=== PATIENT | female | born 1995 | race Caucasian/White ===

== ENCOUNTER 2018-11-29 18:40 | Emergency (ER) | payer BC, SELFPAY ==
--- NOTE | 2018-11-29 18:45 | NUR.NOTE ---
Nursing Note: pt states that she slipped off a water slide at [facility] approximately 3 feet landing on her tailbone 10/29 pain
[2018-11-29 18:46] VITALS: BP 137/90; PULSE 102; RESP 16; TEMP 37.5; O2SAT 100
--- NOTE | 2018-11-29 18:53 | ED.GENADUL_ITS ---
Discharge Plan Disposition Patient Disposition: HOME Condition: Stable Discharge Details Chief Complaint: Orthopedic Clinical Impression: Coccyx contusion ED Provider: Owen Guaman Home Meds and New Rx's Prescriptions: No Action No Known Home Meds RF: 0 Discharge Instructions Instructions: Coccyx Injury (ED) Additional Instructions: Use an inflatable donut to ease pressure on her coccyx while sitting. You may prefer lying on your abdomen. May use ibuprofen 600 to 800 mg as needed for pain every 8 hours. Observe a diet rich in fruits and vegetables so that you may avoid constipation. Stand Alone Forms: Work Release Medical Decision Making Is 23-year-old female presents after stable to fall local [facility]. Now with coccygeal pain. Denies bag, referred for Xray. Radiograph does reveal half she had with posterior displacement of the coccyx in relation to S5. As she does have pain that brings her to tears, offered hydrocodone to help with pain this evening as it is been severe. She understands homecare as well as follow-up/return precautions. She is stable and appropriate for discharge at this time. HPI General Mode of arrival: ambulatory . Date/Time Provider Initiated Documentation: 11/29/18 18:41 . Limitations to Documentation: no limitations . Information obtained by: patient . History of Present Illness 23 year old F presents to the emergency department with the chief complaint of Tailbone pain after slip and fall at [facility], described as moderate, Quality is described as dull and constant, and is localized to the buttocks. Patient started experiencing this minute(s) and it has been constant. No exacerbating factors reported . Patient notes no other symptoms.. Patient did receive the following treatments prior to arrival, NSAID Related Data Home Medications Medication Instructions Recorded Confirmed Unknown [No Known Home Meds] 11/29/18 11/29/18 Allergies Allergy/AdvReac Type Severity Reaction Status Date / Time No Known Allergies Allergy Unverified 11/29/18 18:47 General Stated Complaint: Orthopedic PURNIMA: 4 Review of Systems Review of Systems 6 systems reviewed and otherwise negative. No other injury. Denies loss of consciousness. No back pain. [facility] Social History Smoking/Tobacco Use Status: Never Alcohol Intake: current Alcohol Intake frequency: a few times a month Drug use: Never Substance use type: does not use Do you feel safe at home: Yes Do you feel safe in your relationship?: Yes Exam Narrative Exam Narrative: GEN: awake, alert, oriented 3. Pleasant, well groomed, interactive. HEAD: Normocephalic, atraumatic ENT: Mucous membranes moist, oropharynx unremarkable, External ear exam unremarkable EYES: PERRL, EOMI NECK: Full ROM, no JASMEET, no menigismus CHEST/RESP: Nontender, clear to auscultation bilateral, no wheeze/rhonchi/rales CARDIOVASCULAR: RRR, no murmur, rub candelario. 2+ Rad pulse bilateral ABDOMEN: No tenderness or mass. Back: Low L-spine and coccyx tenderness to palpation. EXT: Full ROM, no edema, no rash Neuro: Grossly normal neurologic exam, conversant, interactive. Psych: Speech fluent, thoughts congruent, affect normal Course Vital Signs Temperature 37.5 C 11/29/18 18:46 Pulse 102 H 11/29/18 18:46 Respiratory Rate 16 11/29/18 18:46 Blood Pressure 137/90 11/29/18 18:46 Pulse Oximetry 100 11/29/18 18:46 Temperature 37.5 C 11/29/18 18:46 Temperature Source Skin 11/29/18 18:46 Pulse 102 H 11/29/18 18:46 Respiratory Rate 16 11/29/18 18:46 Respiratory Effort 11/29/18 18:48 Blood Pressure 137/90 11/29/18 18:46 Blood Pressure Position Standing 11/29/18 18:46 Pulse Oximetry 100 11/29/18 18:46 Oxygen Delivery Method Room Air 11/29/18 18:46 Oxygen Flow Rate 0 11/29/18 18:46
--- NOTE | 2018-11-29 19:25 | DI.RAD_ITS ---
SYMPTOM/DIAGNOSIS: PAIN AFTER FALL SACRUM AND COCCYX: Three views were obtained. There is slightly posteriorly position coccyx in relation to the sacrum. This may represent normal anatomic variant, dislocation not excluded. No fracture is seen. MR correlation could be obtained if clinically indicated.
--- NOTE | 2018-11-29 19:59 | DI.VRAD_ITS ---
EXAM: XR Sacrum and Coccyx, 2 or More Views EXAM DATE/TIME: 11/29/2018 7:25 PM CLINICAL HISTORY: 23 years old, female; Pain in coccyx area; Patient HX: Pain after fall TECHNIQUE: Imaging protocol: XR of the sacrum and coccyx, 2 or more views. COMPARISON: No relevant prior studies available. FINDINGS: Bones/joints: There is half shaft width posterior displacement of C1 in relation to S5. This could be anatomic or related to acute injury. No other acute skeletal abnormality is appreciated. Soft tissues: Mild soft tissue swelling at the level of the coccyx. IMPRESSION: Questionable injury versus normal anatomy for this patient at S5-C1, as detailed above. Dictated and Authenticated by: Sage Gonzales MD. Ordering:HIREN Weaver MD
== END 2018-11-29 20:09 | disposition home or self-care (01) ==
PROVIDERS: Emergency Provider Emergency Medicine
DX: S30.0XXA Contusion of lower back and pelvis, initial encounter (principal); W17.89XA Other fall from one level to another, initial encounter; Y93.11 Activity, swimming; Y92.34 Swimming pool (public) as the place of occurrence of the external cause
CPT/HCPCS: 99283; 72220

== ENCOUNTER 2021-01-14 12:00 | Emergency (ER) | payer BC, SELFPAY ==
[2021-01-14 12:08] VITALS: BP 137/82; PULSE 78; RESP 18; TEMP 37.2; O2SAT 100
--- NOTE | 2021-01-14 12:22 | ED.GENADUL_ITS ---
Discharge Plan Disposition Patient Disposition: HOME Condition: Stable Discharge Details Clinical Impression: Abdominal pain, Hydronephrosis Primary Care Provider: Reagan Dc ED Provider: Yovani Brambila Home Meds and New Rx's Prescriptions: Continued acetaminophen [Acetaminophen Extra Strength] 500 mg Tablet 1,000 mg PO PRN PRNRF: 0 ibuprofen 400 mg Tablet 400 mg PO PRN PRNRF: 0 ondansetron 4 mg Tablet,Disintegrating 4 mg PO PRN PRNRF: 0 Discharge Instructions Instructions: Abdominal Pain (ED), Hydronephrosis (ED) Additional Instructions: Work-up in the ER today does not reveal any obvious emergent process. Your symptoms very well could be secondary to a ruptured ovarian cyst however I cannot prove this. The ultrasound also revealed mild hydronephrosis however this was not visualized on your CT, this very well may be an incidental finding. If you continue to have symptoms then outpatient reevaluation through your primary care provider and referral to urology may be indicated. Please watch for new or worsening symptoms and return to the ER for any concerns. [id number] Tylenol and/or Motrin as directed for discomfort. Discharge Data Discharge Date/Time-TO BE ENTERED AT DEPARTURE: 01/14/21 17:09 Medical Decision Making <ANANT Russo - Last Filed: 01/15/21 10:56> Patient is a pleasant 25 year old female, accompanied by her mother, with c/c of RLQ pain that woke her from sleep at 0100. She states that it feels similar to when she had ruptured ovarian cyst 3 years ago. She has used Tylenol and Ibuprofen for pain. Declines analgesics now. LMP 2 weeks ago. No fevers/chills. No previous abdominal surgeries. Sexually active, denies being . No v aginal discharge. Prior to arrival, patient was seen at urgent care who recommended her to come here for imaging. On exam, patient appears nontoxic. Lungs are clear, normal cardiac exam. No CVA tenderness. Patient is right lower quadrant pain but this is lateral to McBurney's point above the iliac crest. No pain in the pelvis. No rebound tenderness. No pain over McBurney point. No pain with palpation elsewhere about the stomach. Location of the pain does have a concern for appendicitis despite it not being directly over McBurney's point. This is slightly high for ovarian pathology. However, I also consider this as it does feel similar to when she had this in the past. Patient declines analgesics. Will obtain CT to evaluate for possible appendicitis. Will obtain baseline labs. PT negative. Labs without significant abnormality, this includes CBC, CMP, lipase. Urine shows trace ketones. She is receiving hydration here. CT reviewed by radiologist: FINDINGS: Liver: Subcentimeter low attenuation area in the liver is too small for characterization. Gallbladder and bile ducts: Normal. No calcified stones. No ductal dilation. Pancreas: Normal. No ductal dilation. Spleen: Normal. No splenomegaly. Adrenal glands: Normal. No mass. Kidneys and ureters: There is no evidence of renal or ureteral calcifications.. Stomach and bowel: Unremarkable. No obstruction. No mucosal thickening. Appendix: Normal appendix. Intraperitoneal space: Unremarkable. No free air. No significant fluid collection. Vasculature: Unremarkable. No abdominal aortic aneurysm. Lymph nodes: Unremarkable. No enlarged lymph nodes. Urinary bladder: Unremarkable as visualized. Reproductive: 2.4 cm simple cyst left ovary.. Bones/joints: Unremarkable. No acute fracture. Soft tissues: Unremarkable. IMPRESSION: 1. Normal appendix. 2. 2.4 cm simple cyst left ovary.. Recommend duplex ultrasound if torsion is suspected 3. There is no evidence of renal or ureteral calcifications.. Discussed findings with the patient. Will obtain ultrasound to evaluate for potential torsion. At the end of my shift, care transition to Akil Brambila PA-C with ultrasound pending. Patient is stable and has remained relatively pain-free aside from a small ache. <ANANT Casey - Last Filed: 01/14/21 16:35> I assumed care of this 25-year-old female from my colleague ANANT Goodrich, please see her initial HPI and examination. At time of signout laboratory values and CT imaging already performed. Awaiting ultrasound to rule out torsion. I personally evaluated the patient. She appears well, nontoxic, no acute distress. Patient reports she is feeling much improved in general, especially after the ibuprofen. She reports that the fireworks have resolved completely and now only has a mild dull ache. Reports this feels very similar to a prev ious ovarian cyst rupture. Discussed ultrasound results with patient and family. Cystic structure in the left ovary, right kidney with mild hydronephrosis, minimal free fluid in the cervical canal, free fluid inferior to the uterus. Patient denies any fever, vomiting, dysuria, hematuria vaginal bleeding or discharge. Ultrasound does not reveal any obvious emergent process such as obstruction and/or torsion. Laboratory values were also unremarkable. We discussed that the free fluid very well could be secondary to ruptured ovarian cyst however I can certainly not prove this. I recommend that she takes [id number] anti-inflammatory medication and acetaminophen as directed for discomfort. I recommend that she watches for new or worsening symptoms and return to the ER for any concerns. We did discuss her mild hydronephrosis and potential need for outpatient urology follow-up if her symptoms are not to improve. Patient is comfortable this plan, has no additional questions or concerns, and is comfortable discharge. Upon discharge she appears well, nontoxic and able to ambulate without any difficulty. Standard discharge and return precautions provided This documentation was generated using Betterflyation system, please disregard any oddities of phrase or misspellings. Imaging Data Radiologic Study: Attestation: I personally reviewed and interpreted this imaging study as follows: Imaging: Ultrasound Radiologist's impression: PROCEDURE INFORMATION: Exam: US Pelvis Complete, Transabdominal and US Pelvis, Transvaginal Exam date and time: 01/14/2021 2:45 PM Age: 25 years old Clinical indication: Other: Right sided back / pelvic pain; Patient HX: HX bilat ovarian cyst rupture TECHNIQUE: Imaging protocol: Real-time transabdominal and transvaginal pelvic ultrasound (complete) with image documentation. Transvaginal imaging was used for better evaluation of the endometrium, adnexa, and/or cervix. COMPARISON: CT ABDOMEN PELVIS W 01/14/2021 1:20 PM FINDINGS: Uterus/cervix: Minimal fluid in the cervical canal 1.79 x 0.3 x 0.9 cm. Total volume 0.2 cc. Uterus measures 6.4x 2.6 by 3.9 cm. Endometrium 2.7 mm Right adnexa: Right ovary 2 x 1.8 x 1.3 cm Left adnexa: Left ovary 3.5 x 1.8 x 2.7 cm. Cystic structure in the left ovary 2.3 x 1.7 by 2.6 cm. Intraperitoneal space: Free fluid inferior to the uterus. Urinary bladder: Normal. Right kidney: Right kidney 10.9 cm. Minimal hydronephrosis.. Left kidney: Left kidney 10.8 cm. No hydronephrosis IMPRESSION: 1. Cystic structure in the left ovary 2.3 x 1.7 by 2.6 cm. . 2. Right kidney 10.9 cm. Minimal hydronephrosis.. 3. Minimal fluid in the cervical canal 1.79 x 0.3 x 0.9 cm. Total volume 0.2 cc. 4. Free fluid inferior to the uterus. HPI <ANANT Russo - Last Filed: 01/15/21 10:56> General Mode of arrival: ambulatory . Date/Time Provider Initiated Documentation: 01/14/21 12:22 . Limitations to Documentation: no limitations . Information obtained by: patient, family (mom), RN/MD (contacted by urgent care provider) and RN notes reviewed . History of Present Illness 25 year old F presents to the emergency department with the chief complaint of RLQ pain, described as moderate, with intensity rated at 4. Quality is described as aching, and is localized to the abdomen. Patient reports no radiation. Patient started experiencing this hour(s) (0100 today) and it has been constant. other things that improve symptom(s), ( position) Other factors that worsen symptoms (extending abdomen straight) . Patient notes nausea/vomiting (nausea, no vomiting); denies chest pain, cough, fever/chills, rash and shortness of breath. Patient did receive the following treatments prior to arrival, NSAID and other (Tylenol) Related Data Home Medications Medication Instructions Recorded Confirmed acetaminophen [Acetaminophen Extra 1,000 mg PO PRN PRN 01/14/21 01/14/21 Strength] ibuprofen 400 mg PO PRN PRN 01/14/21 01/14/21 ondansetron 4 mg PO PRN PRN 01/14/21 01/14/21 Allergies Allergy/AdvReac Type Severity Reaction Status Date / Time No Known Allergies Allergy Unverified 01/14/21 12:14 General Stated Complaint: Abd Prob PURNIMA: 3 Review of Systems <ANANT Russo Last Filed: 01/15/21 10:56> Constitutional Constitutional: Reports as per HPI, Denies chills, Denies fatigue, Denies fever(s) and Denies headache(s) ENT Ears, Nose, Mouth, and Throat: Denies headache(s) Cardiovascular Cardiovascular: Reports as per HPI, Denies chest pain and Denies dyspnea Respiratory Respiratory: Reports as per HPI, Denies cough and Denies dyspnea Gastrointestinal Gastrointestinal: Reports as per HPI Genitourinary Genitourinary: Reports as per HPI Musculoskeletal Musculoskeletal: Reports as per HPI and Denies back pain Integumentary/Breasts Skin/Breast: Reports as per HPI and Denies rash Neurologic Neurologic: Reports as per HPI and Denies headache(s) Endocrine Endocrine: Denies fatigue PFSH <ANANT Russo - Last Filed: 01/15/21 10:56> Social History Smoking/Tobacco Use Status: Never Smoking risk assessment performed?: Yes Alcohol Intake: current Alcohol Intake frequency: a few times a month Drug use: Never Substance use type: does not use Do you feel safe at home: Yes Do you feel safe in your relationship?: Yes Exam <ANANT Russo Last Filed: 01/15/21 10:56> Const General: cooperative, healthy appearing, comfortable, no acute distress and well developed Nutritional Appearance: well nourished and overweight Orientation: alert and awake HENMT Head: normal to inspection Mouth: moist mucous membranes Resp Effort & Inspection: normal respiratory effort, able to speak in complete sentences and no respiratory distress Auscultation: clear to auscultation bilaterally, no rales, no rhonchi and no wheezes Cardio Rate: regular rate Rhythm: regular rhythm Heart Sounds: S1 normal and S2 normal GI Inspection: normal to inspection Palpation: soft, no hepatosplenomegaly, not firm, no guarding, no masses, not rigid and tender in the RLQ; not at McBurney's point, Omalley's sign negative, psoas sign negative and with no rebound tenderness Percussion: normal to percussion Auscultation: normal bowel sounds Abdomen image: 1. area of pain Back/Spine/Pelvis Back: no CVA tenderness Skin General skin exam: no rashes or lesions noted Trauma: no lacerations or abrasions Neuro General: patient alert and patient awake Cognition: normal cognition Speech: speech normal Gait: normal gait Psych Appearance: grossly normal and well kempt Mental Status: mental status grossly normal Speech and Movement: speech and movement normal Course <ANANT Russo Last Filed: 01/15/21 10:56> Vital Signs Vital signs: Vital Signs Temperature 37.2 C 01/14/21 12:08 Pulse 78 01/14/21 12:08 Respiratory Rate 18 01/14/21 12:08 Blood Pressure 137/82 01/14/21 12:08 Pulse Oximetry 100 01/14/21 12:08 Temperature 37.2 C 01/14/21 12:08 Temperature Source Temporal Artery Scan 01/14/21 12:08 Pulse 78 01/14/21 12:08 Respiratory Rate 18 01/14/21 12:08 Respiratory Effort 01/14/21 12:17 Blood Pressure 137/82 01/14/21 12:08 Blood Pressure Position Supine 01/14/21 12:08 Pulse Oximetry 100 01/14/21 12:08 Oxygen Delivery Method Room Air 01/14/21 12:08 Oxygen Flow Rate 0 01/14/21 12:08 Pain Level 4 01/14/21 12:08 Sign Out <ANANT Russo - Last Filed: 01/15/21 10:56> Sign Out Data: Sign Out Comment: Patient here with right lower quadrant pain. CT without re markable finding. Obtain ultrasound to evaluate for possible torsion. At the end of my shift, care transition to Akil Brambila PA-C with ultrasound results pending. Last updated by Justine Goodrich PA at 01/14/21 15:46
[2021-01-14] MEDS: Lactated Ringers 1,000 ML 1000 ML IV (12:48)
[2021-01-14 13:17] LABS: Abs Immature Grans 0.05 10^3/uL (0.0-0.06); Absolute Basophil Count 0.04 10^3/uL (0.0-0.2); Absolute Eosinophil Count 0.02 10^3/uL (0.0-0.7); Absolute Lymphocyte Count 1.51 10^3/uL (1.2-3.4); Absolute Monocyte Count 0.63 10^3/uL (0.1-0.8); Absolute Neutrophil Count 8.45 10^3/uL (1.2-6.7); Basophils % 0.4; Eosinophils % 0.2; HGB 14.4 g/dL (11.2-15.7); Immature Grans % 0.5; Lymphocytes % 14.1; MCHC 33.5 % (32.0-36.0); MCV 92.5 fL (80-95); MPV 8.5 fL (8.0-11.0); Monocytes % 5.9; Neutrophils % 78.9; Nucleated RBC 0 %; Platelet Count 393 10^3/uL (130-400); RBC 4.65 10^6/uL (3.93-5.22); RDW 11.7 % (11.7-14.6); RDW-SD 39.7 fL
[2021-01-14 13:18] LABS: Bilirubin Negative (Negative); Blood Negative (Negative); Clarity Clear (Clear); Glucose Negative (Negative); Ketones Trace mg/dL (Negative); Leukocyte Esterase Negative (Negative); Nitrite Negative (Negative); Specific Gravity 1.015 (1.005-1.025); Urobilinogen 0.2 EU/dL (Up TO 0.2); pH 5.5 (5-8)
--- NOTE | 2021-01-14 13:22 | DI.CT_ITS ---
Exam(s) CT ABDOMEN PELVIS W EXAM: CT ABDOMEN PELVIS W CLINICAL HISTORY: RLQ pain. TECHNIQUE: Imaging Protocol: Axial computed tomography images with coronal and sagittal reformatted images were created and reviewed CONTRAST MATERIAL: Intravenous: Omnipaque 100cc Oral: None COMPARISON: No exams were available for comparison FINDINGS: VISUALIZED LUNG BASES: No nodules nor pleural effusions evident. ABDOMEN: There is no ascites. LIVER: 5 millimeter subtle benign hypodensity in the upper right hepatic lobe is probably a small hem angioma. Another similar finding is seen slightly lower down in the lateral aspect of the right hepa tic lobe. No other focal hepatic findings nor dilatation of intrahepatic ducts. GALLBLADDER/BILIARY: No obvious gallbladder pathology. CBD is not dilated. PANCREAS: No evidence of pancreatic mass nor dilatation of the pancreatic duct. SPLEEN: Spleen is not enlarged. No obvious intrasplenic lesions. Splenic and portal veins are paten t. ADRENALS: There are no significant adrenal masses. KIDNEYS:No cysts evident. No solid renal masses. No calculi nor hydronephrosis.. ABDOMINAL AORTA: Abdominal aorta is not enlarged. LYMPH NODES:There is no retroperitoneal nor paraaortic adenopathy. ABDOMINAL WALL: No evidence of significant anterior abdominal wall nor inguinal hernia. GI: There is no evidence of bowel obstruction, free air, nor abscess. PELVIS: GI: No evidence of appendicitis.No enlarged lymph nodes in the right lower quadrant mesentery.No evid ence of diverticulitis. LYMPH NODES: There is no intrapelvic nor inguinal adenopathy. REPRODUCTIVE: Uterus size normal. Right ovary normal. There is a cyst in the left ovary which measu res 2.5 x 2.4 cm. No free fluid. URINARY BLADDER: No calculi nor obvious masses evident OSSEOUS: No significant osseous lesions. IMPRESSION: 1. No evidence of appendicitis nor diverticulitis nor obvious gallbladder pathology and no dilatation of the biliary tree. 2. No significant renal findings. No hydronephrosis. 3. There is 2.5 x 2.4 cm cyst in left ovary, not associated with surrounding free fluid. If there is clinical suspicion for torsion then follow-up ultrasound with Doppler imaging would be recommended. 4. There is no ascites. RADIATION DOSE DELIVERED: 820.25mGy.cm Total DLP DATA REPOSITORY: All CT scans at this facility are submitted to the National Radiology Data Registry (NRDR) Dose Index Registry (DIR) with the [employer] ([employer]). RADIATION OPTIMIZATION: All CT scans at this facility use at least one of these dose optimization te chniques: automated exposure control; mA and/or kV adjustment per patient size (includes targeted exa ms where dose is matched to clinical indication); or iterative reconstruction.
[2021-01-14 13:24] LABS: ALT 19 U/L (14-59); AST 17 U/L (15-37); Albumin 3.8 g/dL (3.4-5.0); Alkaline Phosphatase 83 U/L (46-116); Anion Gap 11.4 mmol/L (3-11); BUN 10 mg/dL (7-18); Bilirubin, Total 0.6 mg/dL (0.2-1.0); CO2 24.6 mmol/L (21.0-32.0); CREATININE 0.9 mg/dL (0.55-1.02); Chloride 104 mmol/L (98-107); Glucose 99 mg/dL (74-106); Lipase 61 U/L (73-393); Potassium 3.9 mmol/L (3.5-5.1); Sodium 140 mmol/L (136-145)
[2021-01-14] MEDS: Omnipaque 350 MG/ML 100 ML BTL IJ (13:31)
[2021-01-14] MEDS: Normal Saline Flush 10 ML SYR IVP (13:31)
--- NOTE | 2021-01-14 13:42 | DI.US_ITS ---
Exam(s) US PELVIS TRANSVAGINAL EXAM: US PELVIS TRANSVAGINAL CLINICAL HISTORY: RLQ pain TECHNIQUE: Ultrasound of the pelvis was performed both transabdominal and transvaginal. COMPARISON: No exams were available for comparison FINDINGS: UTERUS: Measures 6.4 cm length x 2.6 cm AP x 3.9 cm wide. There are no uterine fibroids. Endometrial thickness measures 2.7 mm. Mild amount of fluid in the lower endometrial canal CERVIX: There is also fluid in the endocervix RIGHT OVARY: Measures 2 x 1.8 x 1.3 cm No significant cysts nor masses evident in the right ovary. LEFT OVARY: Measures 3.5 x 1.8 x 2.7 cm There is a cyst in left ovary measuring 2.7 x 1.8 cm. It contains a thin septum therein. There is no surrounding free fluid. CUL-DE-SAC: Mild free fluid IMPRESSION: 1. There is some fluid in the lower endometrial canal as well as within the endocervical canal. 2. There is a 2.7 x 1.8 cm septated cyst in the left ovary. No focal findings in the opposite-right ovary. 3. Mild free fluid. Correlation with test recommended DATA REPOSITORY:
--- NOTE | 2021-01-14 14:02 | DI.VRAD_ITS ---
PROCEDURE INFORMATION: Exam: CT Abdomen And Pelvis With Contrast Exam date and time: 01/14/2021 12:43 PM Age: 25 years old Clinical indication: Abdominal pain; Localized; Right lower quadrant (rlq) TECHNIQUE: Imaging protocol: Computed tomography of the abdomen and pelvis with contrast. Radiation optimization: All CT scans at this facility use at least one of these dose optimization techniques: automated exposure control; mA and/or kV adjustment per patient size (includes targeted exams where dose is matched to clinical indication); or iterative reconstruction. Contrast material: [id number]; Contrast volume: 100 ml; Contrast route: INTRAVENOUS (IV); COMPARISON: CR XR sacrum coccyx 11/29/2018 7:15 PM FINDINGS: Liver: Subcentimeter low attenuation area in the liver is too small for characterization. Gallbladder and bile ducts: Normal. No calcified stones. No ductal dilation. Pancreas: Normal. No ductal dilation. Spleen: Normal. No splenomegaly. Adrenal glands: Normal. No mass. Kidneys and ureters: There is no evidence of renal or ureteral calcifications.. Stomach and bowel: Unremarkable. No obstruction. No mucosal thickening. Appendix: Normal appendix. Intraperitoneal space: Unremarkable. No free air. No significant fluid collection. Vasculature: Unremarkable. No abdominal aortic aneurysm. Lymph nodes: Unremarkable. No enlarged lymph nodes. Urinary bladder: Unremarkable as visualized. Reproductive: 2.4 cm simple cyst left ovary.. Bones/joints: Unremarkable. No acute fracture. Soft tissues: Unremarkable. IMPRESSION: 1. Normal appendix. 2. 2.4 cm simple cyst left ovary.. Recommend duplex ultrasound if torsion is suspected 3. There is no evidence of renal or ureteral calcifications.. Dictated and Authenticated by: Tj Jeff MD. Ordering:BEATRIZ Fletcher MD
[2021-01-14 14:44] VITALS: BP 114/64; PULSE 86; RESP 14; O2SAT 100
--- NOTE | 2021-01-14 16:03 | DI.VRAD_ITS ---
PROCEDURE INFORMATION: Exam: US Pelvis Complete, Transabdominal and US Pelvis, Transvaginal Exam date and time: 01/14/2021 2:45 PM Age: 25 years old Clinical indication: Other: Right sided back / pelvic pain; Patient HX: HX bilat ovarian cyst rupture TECHNIQUE: Imaging protocol: Real-time transabdominal and transvaginal pelvic ultrasound (complete) with image documentation. Transvaginal imaging was used for better evaluation of the endometrium, adnexa, and/or cervix. COMPARISON: CT ABDOMEN PELVIS W 01/14/2021 1:20 PM FINDINGS: Uterus/cervix: Minimal fluid in the cervical canal 1.79 x 0.3 x 0.9 cm. Total volume 0.2 cc. Uterus measures 6.4x 2.6 by 3.9 cm. Endometrium 2.7 mm Right adnexa: Right ovary 2 x 1.8 x 1.3 cm Left adnexa: Left ovary 3.5 x 1.8 x 2.7 cm. Cystic structure in the left ovary 2.3 x 1.7 by 2.6 cm. Intraperitoneal space: Free fluid inferior to the uterus. Urinary bladder: Normal. Right kidney: Right kidney 10.9 cm. Minimal hydronephrosis.. Left kidney: Left kidney 10.8 cm. No hydronephrosis IMPRESSION: 1. Cystic structure in the left ovary 2.3 x 1.7 by 2.6 cm. . 2. Right kidney 10.9 cm. Minimal hydronephrosis.. 3. Minimal fluid in the cervical canal 1.79 x 0.3 x 0.9 cm. Total volume 0.2 cc. 4. Free fluid inferior to the uterus. Dictated and Authenticated by: Tj Jeff MD. Ordering:BEATRIZ Fletcher MD
[2021-01-14] MEDS: Ibuprofen 600 MG TAB PO (16:16)
[2021-01-14 16:38] VITALS: BP 125/80; PULSE 83; RESP 18; TEMP 37; O2SAT 99
== END 2021-01-14 17:09 | disposition home or self-care (01) ==
PROVIDERS: Physician Assistant; Emergency Provider Physician Assistant; PCP Nurse Practitioner Family
DX: R10.31 Right lower quadrant pain (principal); N13.30 Unspecified hydronephrosis
CPT/HCPCS: 80053; 81025; 83690; 96360; 99284; 74177; 76830; 76856; 81003; 85025; J3490

== ENCOUNTER 2021-01-20 16:34 | Outpatient (REF) | payer BC, SELFPAY ==
--- NOTE | 2021-01-20 15:30 | PAPFT_PTH ---
PATIENT: Ninfa Araiza LOC: [facility] U#:[id number] AGE/SX: 25/F ROOM: RE01/20/[address]: Iris Romero MD : 1995 BED: DIS: 01/20/2021 SPEC #: [id number] RECD: 01/20/21 16:53 STATUS: DAYNA REQ #: [id number] DELORES: 01/20/21 15:[address]: Iris Romero DEPT: [facility] Cytology RECD BY: Jannette Medley ENTERED: 01/20/21 16:54 SP TYPE: PAPFT OTHR DR: Reagan Dc Tissues: 1 - CX/ENDOCX FOR PAP SMEARS Procedures: PAP THIN PREP/UVM Screening Comments: [id number]
== END 2021-01-20 16:35 | disposition home or self-care (01) ==
LOC: LBN 16:34
PROVIDERS: PCP Nurse Practitioner Family; Visit Provider Obstetrics & Gynecology
DX: Z12.4 Encounter for screening for malignant neoplasm of cervix (principal)
CPT/HCPCS: 88142

== ENCOUNTER 2021-06-06 18:02 | Outpatient (REF) | payer BC, SELFPAY ==
[2021-06-08 14:25] LABS: COVID-19 RT-PCR UVMMC Result Negative (Negative)
== END 2021-06-06 18:03 | disposition home or self-care (01) ==
LOC: LBN 18:02
PROVIDERS: PCP Nurse Practitioner Family; Visit Provider Nurse Practitioner Family
DX: J02.9 Acute pharyngitis, unspecified (principal); Z20.822 Contact with and (suspected) exposure to COVID-19
CPT/HCPCS: 87077; U0003; 87070

== ENCOUNTER 2023-08-25 08:57 | Emergency (ER) | payer BC, SELFPAY ==
[2023-08-25 09:04] VITALS: BP 115/68; PULSE 108; RESP 17; TEMP 37.2; O2SAT 98
--- NOTE | 2023-08-25 09:30 | DI.RAD_ITS ---
Exam(s) XR KNEE LT 3V AP,LAT,CALVIN EXAM: XR KNEE LT 3V AP,LAT,CALVIN CLINICAL HISTORY: left injury, twisting, pain over patella. TECHNIQUE: 2D digital imaging was performed. Three views. COMPARISON: No exams were available for comparison FINDINGS: BONES: No acute fracture is present. No bony destructive lesion is seen. JOINTS: The knee is normally aligned. A moderate-sized joint effusion is seen. The joint spaces are maintained. SOFT TISSUE: Normal. IMPRESSION: Joint effusion. DATA REPOSITORY: RADIATION DOSE DELIVERED:
[2023-08-25] MEDS: Acetaminophen 500 MG TAB 1000 MG PO (10:07)
--- NOTE | 2023-08-25 10:17 | ED.GENADUL_ITS ---
Discharge Plan Disposition Patient Disposition: Home Condition: Stable Discharge Details Clinical Impression: Internal derangement of knee Primary Care Provider: Unknown,Unknown ED Provider: Jannette Giles Home Meds and New Rx's Prescriptions: Continued levonorgestrel-ethinyl estrad 0.15-0.03 mg tablet 1 tab PO DAILY Qty: 84 4RF albuterol sulfate 90 mcg/actuation HFA aerosol inhaler 2 puff inhalation Q6H PRN (Reason: shortness of breath or wheezing) Qty: 6.7 0RF (DME) Aerochamber MV Spacer See Rx Instructions .Route Qty: 1 0RF Rx Instructions: As directed acetaminophen [Acetaminophen Extra Strength] 500 mg Tablet 1,000 mg PO PRN PRN ibuprofen 400 mg Tablet 400 mg PO PRN PRN Discharge Instructions Additional Instructions: Take ibuprofen 600 mg every 8 hours with food Take Tylenol 650 every 4 hours, do not exceed 4 g of Tylenol daily Ice 20 minutes/h, do not apply ice directly to your leg, use your crutches with ambulation Follow-up with orthopedics on Saturday they will likely call you to schedule an appointment You may apply diclofenac gel or Motrin gel which is [id number] for pain Return earlier should you develop any new or worsening complaints Discharge Data Discharge Date/Time-TO BE ENTERED AT DEPARTURE: 08/25/23 10:42 HPI General Date/Time Provider Initiated Documentation: 08/25/23 09:05 . HPI Narrative: This 28-year-old female presents with report of left knee pain. She states that she was dancing and twisted her knee and then has not been able to ambulate since that time secondary discomfort. She states it is mostly pain but feels unstable. She states she is having trouble placing any pressure on the knee secondary to pain. She denies any chance of or any additional injuries. She did sleep on her left arm and has some tingling to her fourth and fifth digits which has been persistent for the past several hours. It is predominantly in her hands and denies any additional symptoms at this time. Otherwise reportedly healthy does not take medications per patient. Related Data Home Medications Medication Instructions Recorded Confirmed acetaminophen 500 mg tablet 1,000 mg PO PRN PRN 01/14/21 08/25/23 (Acetaminophen Extra Strength) ibuprofen 400 mg tablet 400 mg PO PRN PRN 01/14/21 08/25/23 levonorgestrel 0.15 mg-ethinyl 1 tab PO DAILY #84 tabs 01/20/21 08/25/23 estradiol 0.03 mg tablet inhalational spacing device #1 ea 04/19/22 08/25/23 (Aerochamber MV spacer) albuterol sulfate 90 mcg/actuation 2 puff inhalation Q6H PRN 06/12/23 08/25/23 aerosol inhaler shortness of breath or wheezing #6.7 grams Previous Rx's Medication Instructions Recorded levonorgestrel 0.15 mg-ethinyl 1 tab PO DAILY #84 tabs 01/20/21 estradiol 0.03 mg tablet inhalational spacing device #1 ea 04/19/22 (Aerochamber MV spacer) albuterol sulfate 90 mcg/actuation 2 puff inhalation Q6H PRN 06/12/23 aerosol inhaler shortness of breath or wheezing #6.7 grams Allergies Allergy/AdvReac Type Severity Reaction Status Date / Time amoxicillin [From Augmentin] AdvReac Intermediate Vomit Verified 08/25/23 09:10 clavulanic acid AdvReac Intermediate Vomit Verified 08/25/23 09:10 [From Augmentin] General Stated Complaint: Orthopedic PURNIMA: 3 Exam Narrative Exam Narrative: 19-year-old female alert and oriented left knee pain, flexion and extension intact, no obvious swelling or visible sign of trauma no Kesling or tenderness, neurovascularly intact Some mild paresthesias to fourth and fifth digits on hands, hand grasp intact bilaterally and symmetrical, no upper arm involvement and no other neurological signs or symptoms on assessment Course Vital Signs Vital signs: Vital Signs Temperature 37.2 C 08/25/23 09:04 Pulse 108 H 08/25/23 09:04 Respiratory Rate 17 08/25/23 09:04 Blood Pressure 115/68 08/25/23 09:04 Pulse Oximetry 98 08/25/23 09:04 Temperature 37.2 C 08/25/23 09:04 Pulse 108 H 08/25/23 09:04 Respiratory Rate 17 08/25/23 09:04 Respiratory Effort Normal 08/25/23 09:09 Blood Pressure 115/68 08/25/23 09:04 Blood Pressure Position Sitting 08/25/23 09:04 Pulse Oximetry 98 08/25/23 09:04 Oxygen Delivery Method Room Air 08/25/23 09:04 Oxygen Flow Rate 0 08/25/23 09:04 Pain Level 9 08/25/23 09:16 Medical Decision Making 28-year-old female presenting with injury to left knee, exam reassuring, no obvious evidence of patellar tendon disruption able to flex and extend knee, x- ray per radiology interpretation my review does not show evidence of acute f racture or obvious effusion. Patient will need to have knee immobilizer placed for comfort and crutches. She will be referred to orthopedics for internal derangement of knee will take ibuprofen and Tylenol as needed for pain. In terms of the left fourth and fifth digit paresthesias, I suspect patient likely has an neuralgia secondary to likely sleeping on her ulnar nerve and this likely resolved. She is encouraged to return there is no evidence of central process clinically. Return precautions reviewed and patient expressed understanding Quality:SDOH Health Related Social Needs: No Data to Display PFSH All Active Problems (Updated 08/25/23 @ 10:17 by ANANT Godoy) Internal derangement of knee (Acute) Ovarian cyst (Acute) Routine gynecological examination (Acute) Pelvic pain (Acute) Chronic migraine without aura, not intractable, without status migrainosus (Acute) Abdominal pain (Acute) Hydronephrosis (Acute) Family History Other Autoimmune disease Diabetes Heart disease Hypertension Stroke Social History Smoking/Tobacco Use Status: Never Smoking risk assessment performed?: Yes Alcohol Intake: current Alcohol Intake frequency: a few times a month Drug use: Never Substance use type: does not use Household members: significant other Number of Children: 0 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 @ [employer] Sexually active: Yes Do you think of yourself as: straight/heterosexual Current gender identity: female What type of physical activity do you participate in: bicycling Do you feel safe at home: Yes Do you feel safe in your relationship?: Yes Female Reproductive History Menstrual Age of Menarche: 14 control method: pills History History 0 Para Hx # Term Pregnancies Multiple births Hx # Pregnancies Ectopic pregnancies AB induced Hx Number of Living Children AB spontaneous PAWSS Have you Been Recently Intoxicated or Drunk Within the Last 30 days?: No Have you Ever Experienced Previous Episodes of Alcohol Withdrawal?: No Have you ever Experienced Withdrawal Seizures?: No Have you ever Experienced Delirium Tremens(DT)s?: No Have you ever undergone Alcohol Rehabilitation Treatment (i.e, inpt ot outpatient treatment programs)?: No Have you ever Experienced Blackouts?: No Have you ever Combined Alcohol with other Downers within the last 90 days?: No Have you ever Combined Alcohol with any other Substance of Abuse during the last 90 days?: No Result: 0
[2023-08-25 10:39] VITALS: BP 115/68; PULSE 108; RESP 17; TEMP 37.2; O2SAT 98
--- NOTE | 2023-08-25 11:06 | DI.VRAD_ITS ---
PROCEDURE INFORMATION: Exam: XR Left Knee Exam date and time: 08/25/2023 9:49 AM Age: 28 years old Clinical indication: Other: Left injury, twisting, pain over patella TECHNIQUE: Imaging protocol: Radiologic exam of the left knee. Views: 3 views. COMPARISON: No relevant prior studies available. FINDINGS: Bones/joints: Moderate-sized joint effusion present. No evidence of acute fracture Soft tissues: Normal. IMPRESSION: No evidence of acute fracture. Dictated and Authenticated by: Jolene Roche MD. Ordering:BAYLEE Bhatia MD
== END 2023-08-25 10:42 | disposition home or self-care (01) ==
PROVIDERS: Emergency Provider Physician Assistant
DX: M25.462 Effusion, left knee (principal); M23.8X2 Other internal derangements of left knee
CPT/HCPCS: 73562; 99283

== ENCOUNTER 2023-09-25 14:43 | Outpatient (REF) | payer BC, SELFPAY | END 2023-09-25 14:44 | disposition home or self-care (01) | LOC: LBN 14:43 | PROVIDERS: PCP Physician Assistant; Visit Provider Physician Assistant | DX: J02.9 Acute pharyngitis, unspecified (principal) | CPT/HCPCS: 87070 ==

== ENCOUNTER 2023-11-13 12:05 | Outpatient (REF) | payer BC, SELFPAY | END 2023-11-13 12:06 | disposition home or self-care (01) | LOC: LBN 12:05 | PROVIDERS: PCP Physician Assistant; Visit Provider Obstetrics & Gynecology | DX: N89.8 Other specified noninflammatory disorders of vagina (principal) | CPT/HCPCS: 87086; 87480; 87510; 87660 ==

== ENCOUNTER 2024-03-09 15:46 | Outpatient (REF) | payer BC, SELFPAY ==
--- NOTE | 2024-03-09 15:17 | PAPFT_PTH ---
PATIENT: Ninfa Araiza LOC: [facility] U#:[id number] AGE/SX: 28/F ROOM: RE03/09/[address]: Iris Romero MD : 1995 BED: DIS: 03/09/2024 SPEC #: [id number] RECD: 03/09/24 17:28 STATUS: DAYNA REQ #: [id number] DELOERS: 03/09/24 15:[address]: Iris Romero DEPT: [facility] Cytology RECD BY: Jannette Medley ENTERED: 03/09/24 17:28 SP TYPE: PAPFT OTHR DR: Brady Ojeda Tissues: 1 - CX/ENDOCX FOR PAP SMEARS Procedures: PAP THIN PREP/UVM Screening HPV DNA PROBE Comments: [id number] (HPV 16 & 18/45)
== END 2024-03-09 15:47 | disposition home or self-care (01) ==
LOC: LBN 15:46
PROVIDERS: PCP Physician Assistant; Visit Provider Obstetrics & Gynecology
DX: Z01.419 Encounter for gynecological examination (general) (routine) without abnormal findings (principal)
CPT/HCPCS: 88142; 87624

== ENCOUNTER 2024-11-10 06:14 | Emergency (ER) | payer BC, SELFPAY ==
[2024-11-10 06:17] VITALS: BP 145/96; PULSE 91; RESP 18; TEMP 36.7; O2SAT 99
[2024-11-10 06:22] VITALS: BP 145/96; PULSE 91; RESP 18; TEMP 36.7; O2SAT 99
--- NOTE | 2024-11-10 06:26 | W.ED.GENAD ---
Discharge Plan Discharge Details Chief Complaint: Abd Prob Clinical Impression: Dehydration, Nausea & vomiting, Colicky epigastric pain Primary Care Provider: Brady Ojeda ED Provider: Doug Anderson Home Meds and New Rx's Prescriptions: No Action albuterol sulfate 90 mcg/actuation HFA aerosol inhaler 2 puff inhalation Q6H PRN (Reason: shortness of breath or wheezing) Qty: 6.7 0RF sertraline 50 mg tablet 50 mg PO DAILY (DME) Aerochamber MV Spacer See Rx Instructions .Route Qty: 1 0RF Rx Instructions: As directed levonorgestrel-ethinyl estrad 0.15-0.03 mg tablet 1 tab PO DAILY Qty: 84 4RF acetaminophen [Acetaminophen Extra Strength] 500 mg Tablet 1,000 mg PO PRN PRN ibuprofen 400 mg Tablet 400 mg PO PRN PRN HPI General Date/Time Provider Initiated Documentation: 11/10/24 06:25. HPI Narrative: This is a pleasant 29-year-old female with past medical history of of asthma, who presents today for evaluation of abdominal pain. Patient states that 3 days ago she developed fever and chills with a Tmax of 102. She had no other symptoms of cough or vomit or headache or neck pain. However about 48 hours ago she developed epigastric pain discomfort which she described as a sharp sensation, that comes and goes in severity. Over the last 24 hours she has had multiple episodes of vomiting associated with this but no hematemesis, or hematochezia. She has noted some dark-colored stool. She had been taking just a few pills of ibuprofen and Tylenol for her fever earlier but nothing excessive. She denies any alcohol use. Pain is located in the upper abdomen, radiates to the right and left upper quadrants. She denies any other complaints at this time. No other modifying factors. Related Data Home Medications ?Medication ?Instructions ?Recorded ?Confirmed acetaminophen 500 mg tablet 1,000 mg PO PRN PRN 01/14/21 11/10/24 (Acetaminophen Extra Strength) ibuprofen 400 mg tablet 400 mg PO PRN PRN 01/14/21 11/10/24 inhalational spacing device #1 ea 04/19/22 03/09/24 (Aerochamber MV spacer) albuterol sulfate 90 mcg/actuation 2 puff inhalation Q6H PRN 06/12/23 11/10/24 aerosol inhaler shortness of breath or wheezing #6.7 grams sertraline 50 mg tablet 50 mg PO DAILY 03/09/24 11/10/24 levonorgestrel 0.15 mg-ethinyl 1 tab PO DAILY #84 tabs 03/10/24 11/10/24 estradiol 0.03 mg tablet Previous Rx's ?Medication ?Instructions ?Recorded inhalational spacing device #1 ea 04/19/22 (Aerochamber MV spacer) albuterol sulfate 90 mcg/actuation 2 puff inhalation Q6H PRN 06/12/23 aerosol inhaler shortness of breath or wheezing #6.7 grams levonorgestrel 0.15 mg-ethinyl 1 tab PO DAILY #84 tabs 03/10/24 estradiol 0.03 mg tablet Allergies Allergy/AdvReac Type Severity Reaction Status Date / Time amoxicillin (From Augmentin) AdvReac Intermediate Vomit Verified 11/10/24 06:21 clavulanic acid (From AdvReac Intermediate Vomit Verified 11/10/24 06:21 Augmentin) General Stated Complaint: Abd Prob PURNIMA: 3 Exam Narrative Exam Narrative: 1.Const: Well-nourished, Well-developed, appearing stated age 2.Eyes: PERRL, no conjunctival injection, and symmetrical lids. 3.ENT: Atraumatic external nose and ears. Dry MM. Neck: Symmetric, trachea midline, No thyromegaly. 4.CVS: +S1/S2, Peripheral pulses 2+ and equal in all extremities. Brisk capillary refill in all extremities. 5.RESP: Unlabored respiratory effort. Clear to auscultation bilaterally. No wheezes rales or rhonchi 6.GI: Soft, Nontender/Nondistended, No hepatosplenomegaly. No guarding or rebound. Mild epigastric achiness but no significant pain. 7.MSK: Normocephalic/Atraumatic, Extremities w/o deformity or ttp No cyanosis or clubbing, Normal movement of all extremities 8.Skin: Warm, Dry. No rashes or lesions. 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 Sensation grossly intact, no focal neurologic deficits. 10.Psych: (AAO) x3. Appropriate mood and affect Course Vital Signs Vital signs: Vital Signs Temperature 36.7 C 11/10/24 06:17 Pulse 91 H 11/10/24 06:17 Respiratory Rate 18 11/10/24 06:17 Blood Pressure 145/96 H 11/10/24 06:17 Pulse Oximetry 99 11/10/24 06:17 Temperature 36.7 C 11/10/24 06:22 Temperature Source Oral 11/10/24 06:22 Pulse 91 H 11/10/24 06:22 Respiratory Rate 18 11/10/24 06:22 Blood Pressure 145/96 H 11/10/24 06:22 Blood Pressure Position Sitting 11/10/24 06:22 Pulse Oximetry 99 11/10/24 06:22 Oxygen Delivery Method Room Air 11/10/24 06:22 Oxygen Flow Rate 0 11/10/24 06:22 Pain Level 8 11/10/24 06:22 Medical Decision Making This is a pleasant 29-year-old female with past medical history of of asthma, who presents today for evaluation of abdominal pain. Patient states that 3 days ago she developed fever and chills with a Tmax of 102. She had no other symptoms of cough or vomit or headache or neck pain. However about 48 hours ago she developed epigastric pain discomfort which she described as a sharp sensation, that comes and goes in severity. Over the last 24 hours she has had multiple episodes of vomiting associated with this but no hematemesis, or hematochezia. She has noted some dark-colored stool. She had been taking just a few pills of ibuprofen and Tylenol for her fever earlier but nothing excessive. She denies any alcohol use. Pain is located in the upper abdomen, radiates to the right and left upper quadrants. She denies any other complaints at this time. No other modifying factors. Exam demonstrates well-appearing female, mild epigastric achiness, but no signs of an acute surgical abdomen. No pain at McBurney's point. Negative Omalley sign. Differential includes gastroenteritis, gastric ulcer, pancreatitis, cholecystitis is less likely. Symptoms inconsistent with ACS or PE with no chest discomfort. No evidence to suggest acute mesenteric ischemia. Will give GI cocktail, Carafate, Zofran rehydrate, get labs, monitor closely and reassess. With no evidence of an acute surgical abdomen, I do not see an indication for emergent imaging at this time. 7:27 AM Laboratory workup has returned, after a liter of fluids, Carafate, and GI cocktail patient is having slight worsening of her pain. She has no white count or bandemia. Lactate is normal, lipase normal, transaminases and bilirubin normal. Urinalysis negative for infection, COVID flu and RSV are negative. With the patient's persistent and worsening pain I am concerned for potential other acute intra-abdominal pathology. Will get CT scan. Patient will be signed out to my colleague for follow-up on imaging. I have extensively reviewed the treatment plan and discharge instructions with the patient. I have addressed all patient concerns at this time. The patient was made aware of what symptoms to monitor for that would warrant a return to the emergency department. Discussed the plan with the patient, they demonstrate verbal understanding and agreement with our assessment and plan at this time. The documentation in this chart was dictated using [employer] dictation software. Please excuse any dictation errors. PFSH All Active Problems (Updated 11/10/24 @ 07:28 by Doug Anderson DO) Colicky epigastric pain (Acute) Nausea & vomiting (Acute) Dehydration (Acute) Internal derangement of left knee (Acute ~08/24/23) Ovarian cyst (Acute) Chronic migraine without aura, not intractable, without status migrainosus (Acute) Medical History Hydronephrosis Family History Other Autoimmune disease Diabetes Heart disease Hypertension Stroke Social History Smoking/Tobacco Use Status: Never Smoking risk assessment performed?: Yes Alcohol Intake: current Alcohol Intake frequency: a few times a month Drug use: Never Substance use type: does not use Household members: significant other Number of Children: 0 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
[2024-11-10] MEDS: MYLANTA 30 ML, LIDOCAINE 2% VISCOUS UD 15 ML PO (06:40)
[2024-11-10] MEDS: Sucralfate 1 GM TAB PO (06:41)
[2024-11-10] MEDS: Ondansetron 4 MG/2 ML VIAL IVP (06:41)
[2024-11-10] MEDS: Lactated Ringers 1,000 ML 1000 ML IV (06:41)
[2024-11-10 06:44] LABS: Abs Immature Grans 0.03 10^3/uL (0.0-0.06); HCT 38.9 % (36.0-46.0); HGB 13.0 g/dL (11.2-15.7); Immature Grans % 0.3 %; MCH 29.8 pg (27.0-33.0); MCHC 33.4 % (32.0-36.0); MCV 89 fL (80-95); MPV 8.4 fL (8.0-11.0); Platelet Count 320 10^3/uL (130-400); RBC 4.36 10^6/uL (3.93-5.22); RDW 12.2 % (11.7-14.6); RDW-SD 39.8 fL; WBC 10.41 10^3/uL (4.4-10.8)
[2024-11-10 07:04] LABS: ALT 19 U/L (14-59); AST 12 U/L (15-37); Albumin 3.1 g/dL (3.4-5.0); Alkaline Phosphatase 79 U/L (46-116); Anion Gap 10.1 mmol/L (3-11); BUN 9 mg/dL (7-18); Bilirubin, Total 0.3 mg/dL (0.2-1.0); CO2 25.9 mmol/L (21.0-32.0); Calcium 9.2 mg/dL (8.5-10.1); Chloride 105 mmol/L (98-107); Estimated GFR 101.59 (mL/min/1.73m2); Glucose 102 mg/dL (74-106); Lipase 75 U/L (<78); Potassium 3.8 mmol/L (3.5-5.1); Sodium 141 mmol/L (136-145); Total Protein 7.3 g/dL (6.4-8.2)
[2024-11-10 07:09] LABS: Glucose Negative (Negative)
--- NOTE | 2024-11-10 07:15 | DI.CT_ITS ---
Exam(s) CT ABDOMEN PELVIS W EXAM: CT ABDOMEN PELVIS W CLINICAL HISTORY: epigastric pain and vomiting. TECHNIQUE: Imaging Protocol: Axial computed tomography images with coronal and sagittal reformatted images were created and reviewed CONTRAST MATERIAL: Intravenous: Omnipaque 350 Contrast volume:75 ml Oral: no COMPARISON: CT CT ABDOMEN PELVIS W from 01/14/2021 FINDINGS: ABDOMEN and PELVIS: Lung Bases: No acute findings. Liver: Normal density. No suspicious mass. Gallbladder and biliary tract: No radiodense calculus. No wall thickening or pericholecystic fluid. No biliary dilation. Pancreas: Normal density. No abnormal calcifications or inflammatory process. No evidence of mass. Spleen: Normal. Kidneys: Normal size, contour and axis. No radiodense stones. No obstructive uropathy. No suspicious masses seen. Adrenal glands: No masses seen. Vasculature: Abdominal aorta non-dilated. Soft tissues: Unremarkable. Bladder: No gross wall thickening. No calculi.No focal mass. Bowel: The stomach is empty but unremarkable. No obstruction. The colon is largely free of stool. There is mild diffuse wall thickening which could indicate colitis. No pneumatosis. Appendix normal. Peritoneal cavity: Physiologic amount of pelvic fluid. No focal collection. No mesenteric inflammatory response. No free air. Bones: Unremarkable for age. Reproductive organs: Unremarkable. Lymph nodes: No pathologically enlarged lymph nodes. IMPRESSION:: Mild diffuse wall thickening involving the colon could indicate colitis. RADIATION DOSE DELIVERED: 767.11mGy.cm Total DLP DATA REPOSITORY: All CT scans at this facility are submitted to the National Radiology Data Registry (NRDR) Dose Index Registry (DIR) with the [employer] (ACR). RADIATION OPTIMIZATION: All CT scans at this facility use at least one of these dose optimization techniques: automated exposure control; mA and/or kV adjustment per patient size (includes targeted exams where dose is matched to clinical indication); or iterative reconstruction.
[2024-11-10 07:22] LABS: COVID-19 PCR Negative (Negative); RSV PCR Negative (Negative)
--- NOTE | 2024-11-10 07:32 | W.EDPROG ---
Date of service: 11/10/24 Time of Service: 07:33 Medical Decision Making Care assumed from off going provider. Patient is a 29-year-old female presenting with epigastric abdominal pain, vomiting and diarrhea. Lab work has been reviewed there is no signs of acute electrolyte derangement, dehydration, pancreatitis or derangement in liver function testing. Patient has persistent epigastric tenderness so CT scan had been ordered. Final disposition pending CT scan. CT imaging reviewed, mild inflammation of the colon, nothing specific. Patient is feeling much better after additional IV treatment. Cleared for discharge home with prescriptions for Zofran and Protonix. Return precautions advised. Discharge Plan Disposition Patient Disposition: Home Condition: Stable Discharge Details Clinical Impression: Dehydration, Nausea & vomiting, Colicky epigastric pain Primary Care Provider: Brady Ojeda ED Provider: Suki Coley Home Meds and New Rx's Prescriptions: New ondansetron 4 mg tablet,disintegrating 4 mg PO Q6H PRN (Reason: nausea and vomiting) Qty: 30 0RF pantoprazole [Protonix] 20 mg tablet,delayed release (DR/EC) 20 mg PO DAILY Qty: 30 0RF No Action albuterol sulfate 90 mcg/actuation HFA aerosol inhaler 2 puff inhalation Q6H PRN (Reason: shortness of breath or wheezing) Qty: 6.7 0RF sertraline 50 mg tablet 50 mg PO DAILY (DME) Aerochamber MV Spacer See Rx Instructions .Route Qty: 1 0RF Rx Instructions: As directed levonorgestrel-ethinyl estrad 0.15-0.03 mg tablet 1 tab PO DAILY Qty: 84 4RF acetaminophen [Acetaminophen Extra Strength] 500 mg Tablet 1,000 mg PO PRN PRN ibuprofen 400 mg Tablet 400 mg PO PRN PRN Discharge Instructions Instructions: Nausea and vomiting in adults Additional Instructions: You were evaluated in the emergency department for abdominal pain vomiting and diarrhea. Blood work does not indicate significant electrolyte derangement, dehydration or significant infection. Your CT scan shows some inflammation. This is likely from viral illness causing your symptoms. You will be discharged with Zofran and Protonix to help with your symptoms. You may continue to have a little diarrhea, but increase your fluid intake with water or Gatorade Pedialyte to help stay hydrated. Return to the emergency department with any worsening symptoms, severe pain, not tolerating anything by mouth.
[2024-11-10] MEDS: Pantoprazole 40 MG VIAL IVP (07:53)
[2024-11-10] MEDS: Omnipaque 350 MG/ML 100 ML BTL IJ (07:56)
[2024-11-10] MEDS: Normal Saline - Diluent 50 ML VIAL IJ (07:58)
[2024-11-10 09:10] VITALS: BP 108/74; PULSE 99; RESP 16; O2SAT 100
== END 2024-11-10 09:11 | disposition home or self-care (01) ==
PROVIDERS: Student in an Organized Health Care Education/Training Program; Emergency Provider Emergency Medicine; PCP Physician Assistant
DX: K85.90 Acute pancreatitis without necrosis or infection, unspecified (principal); R11.2 Nausea with vomiting, unspecified; R19.7 Diarrhea, unspecified
CPT/HCPCS: 00123; 36415; 80053; 81025; 83690; 87637; 96361; 96374; 96375; 99285; 74177; 81003; 83605; 85025; J2405; J2470; J3490

== ENCOUNTER 2024-11-12 21:16 | Emergency (ER) | payer BC, SELFPAY ==
[2024-11-12 21:20] VITALS: BP 148/84; PULSE 112; RESP 18; TEMP 37.4; O2SAT 97
--- NOTE | 2024-11-12 21:42 | ED.GENADUL_ITS ---
Discharge Plan Disposition Patient Disposition: Home Condition: Stable Discharge Details Clinical Impression: Pancreatitis, Nausea, vomiting and diarrhea Primary Care Provider: Brady Ojeda ED Provider: Andie Hansen Home Meds and New Rx's Prescriptions: No Action albuterol sulfate 90 mcg/actuation HFA aerosol inhaler 2 puff inhalation Q6H PRN (Reason: shortness of breath or wheezing) Qty: 6.7 0RF sertraline 50 mg tablet 50 mg PO DAILY (DME) Aerochamber MV Spacer See Rx Instructions .Route Qty: 1 0RF Rx Instructions: As directed levonorgestrel-ethinyl estrad 0.15-0.03 mg tablet 1 tab PO DAILY Qty: 84 4RF ondansetron 4 mg tablet,disintegrating 4 mg PO Q6H PRN (Reason: nausea and vomiting) Qty: 30 0RF pantoprazole [Protonix] 20 mg tablet,delayed release (DR/EC) 20 mg PO DAILY Qty: 30 0RF acetaminophen [Acetaminophen Extra Strength] 500 mg Tablet 1,000 mg PO PRN PRN ibuprofen 400 mg Tablet 400 mg PO PRN PRN Discharge Instructions Instructions: Pancreatitis (DC) Additional Instructions: You were seen in the emergency department today for evaluation of ongoing epigastric abdominal pain as well as nausea with vomiting and diarrhea. In our department a full physical examination performed and had laboratory studies that were concerning for pancreatitis. Your gallbladder labs were normal and your bedside ultrasound was equivocal, with a question of a potential small stone but not clear evidence of obstruction or infection. You need to go tomorrow or Saturday for a formal right upper quadrant abdominal ultrasound, this has been ordered. Your primary care provider needs to be contacted to know that you are having the study done so that any positive results can be referred to general surgery for definitive management. For pancreatitis I recommend clear liquids until your pain has improved. Please use therapeutic dosing of Tylenol (acetaminophen) & Advil (ibuprofen) in an alternating fashion as follows: Take 1000mg of Tylenol every 6 hours without missing doses- that is 4 times per day. Skilled Nursing in between the Tylenol doses, take 600mg of Advil also on a 6 hour schedule, that is also 4 times per day. With this strategy, you will be taking something for fever/pain as often as every 3 hours. The daily maximum dosing of Tylenol is 4000mg, and the daily maximum dosing of Advil is 2400mg. Please note that some common cold medications & prescription pain medications may contain acetaminophen and you need to read OTC drug labels and factor that in to maximum daily doses. You should continue to take the Protonix as well as the Zofran given to you at your initial visit. Please follow-up with your primary care provider in the next few days to discuss this visit and any symptoms that change, worsen, or persist. Thank you for allowing us to be part of your care. Discharge Orders Other Ambulatory Orders: US abdomen limited (Routine) Timeframe: 3 Days Facility: [facility] - Location: DIAGNOSTIC IMAGING Ordered By: Andie Hansen [facility] General Mode of arrival: ambulatory . Date/Time Provider Initiated Documentation: 11/12/24 21:18 . Limitations to Documentation: no limitations . Information obtained by: patient and old records reviewed . HPI Narrative: This is a 29-year-old female patient with a past medical history significant for ovarian cyst, migraines, and a recent diagnosis of colitis in this emergency department 2 days ago presenting for reevaluation of ongoing epigastric abdominal pain, with nausea, vomiting, and diarrhea. The patient reports that her symptoms have been waxing waning over the last 2 days despite the use of Protonix and Zofran. She reports that she has not had fevers, but her pain has been quite severe. She has nonbloody vomiting and her stool has had some blood streaking the outside, and has transitioned to a black her color than before. She did use some Pepto-Bismol several days ago, but states that there was some concern from the initial provider about potential ulcers/GERD. No one else in the home has been sick with similar symptoms, she has no hospitalization or antibiotic use recently, no exposure to untreated water sources reported. No history of abdominal surgeries, no dysuria, utilizes oral control and condoms for prevention. Related Data Home Medications ?Medication ?Instructions ?Recorded ?Confirmed acetaminophen 500 mg tablet 1,000 mg PO PRN PRN 11/12/24 (Acetaminophen Extra Strength) ibuprofen 400 mg tablet 400 mg PO PRN PRN 01/14/21 0 11/12/24 inhalational spacing device #1 ea 04/19/22 03/09/24 (Aerochamber MV spacer) albuterol sulfate 90 mcg/actuation 2 puff inhalation Q 6H PRN 06/12/23 11/12/24 aerosol inhaler shortness of breath or wheez ing #6.7 grams sertraline 50 mg tablet 50 mg PO DAILY 03/09/2410/21 levonorgestrel 0.15 mg-ethinyl 1 tab PO DAILY #84 tabs 03/10/24 11/12/24 estradiol 0.03 mg tablet ondansetron 4 mg disintegrating 4 mg PO Q6H PRN nausea and 11/10/24 11/12/24 tablet vomiting #30 tabs pantoprazole 20 mg tablet,delayed 20 mg PO DAILY #30 t abs 11/10/24 11/12/24 release (Protonix) Previous Rx's ?Medication ?Instructions ?Recorded inhalational spacing device #1 ea 04/19/22 (Aerochamber MV spacer) albuterol sulfate 90 mcg/actuation 2 puff inhalation Q 6H PRN 06/12/23 aerosol inhaler shortness of breath or wheez ing #6.7 grams levonorgestrel 0.15 mg-ethinyl 1 tab PO DAILY #84 tabs 03/10/24 estradiol 0.03 mg tablet ondansetron 4 mg disintegrating 4 mg PO Q6H PRN nausea and 11/10/24 tablet vomiting #30 tabs pantoprazole 20 mg tablet,delayed 20 mg PO DAILY #30 t abs 11/10/24 release (Protonix) Allergies Allergy/AdvReac Type Severity Reaction Status Date / Time amoxicillin (From Augmentin) AdvReac Intermediate Vomit Verified 11/12/24 21:26 clavulanic acid (From AdvReac Intermediate Vomit Verified 11/12/24 21:26 Augmentin) General Stated Complaint: Abd Prob PURNIMA: 3 Exam Narrative Exam Narrative: Gen: Awake and alert, in no apparent distress HEENT: Non-icteric sclera Neck: Supple Lungs: No apparent respiratory distress, normal respiratory effort. Lung sounds clear and equal CV: Appears well perfused, heart with regular rate and rhythm Abdomen: Non-distended, soft, tender to palpation in the epigastric region and left upper quadrant without rigidity, rebound, or guarding. Omalley sign negative MSK: Moves 4 extremities without apparent limitation in ROM Skin: Visualized skin without rashes, cyanosis. Neuro: Normal Gait, no obvious focal deficits or facial asymmetry. Speaks in full, clear sentences. Psych: Appropriate for situation. Course Vital Signs Vital signs: Vital Signs Temperature 37.4 C 11/12/24 21:20 Pulse 112 H 11/12/24 21:20 Respiratory Rate 18 11/12/24 21:20 Blood Pressure 148/84 H 11/12/24 21:20 Pulse Oximetry 97 11/12/24 21:20 Temperature 37.4 C 11/12/24 21:20 Pulse 112 H 11/12/24 21:20 Respiratory Rate 18 11/12/24 21:20 Blood Pressure 148/84 H 11/12/24 21:20 Pulse Oximetry 97 11/12/24 21:20 Pain Level 7 11/12/24 21:20 Lab/Test Results Lab/Test Results: POC- Test(urine) Negative Medical Decision Making This is a 29-year-old female patient presenting for evaluation of ongoing abdominal discomfort and nausea with vomiting and diarrhea in the setting of a recent diagnosis of colitis. My differential includes, but is not limited to, gastritis/PUD, gastroenteritis, colitis (considered infectious, patient with no history of inflammatory bowel disease though certainly she is not out of the age range where this could be considered) pancreatitis, cholecystitis and gallbladder pathology, hepatitis, appendicitis, diverticulitis, small bowel obstruction. Considered urinary pathology including UTI, nephrolithiasis. Cons idered mesenteric ischemia, aortic pathology, though this is less concerning based on the patient's history and physical exam. Considered ectopic , PID/TOA, ovarian cyst, ovarian torsion. We will provide the patient with a liter of IV fluids given her tachycardia, get laboratory studies to include CBC, CMP, magnesium, lactate, and lipase. I will provide her with Zofran and Tylenol for initial symptomatic management. - I independently interpreted the laboratory studies, which show no significant or worsening leukocytosis, anemia, or thrombocytopenia. The chemistry panel is without evidence of electrolyte abnormality, kidney dysfunction, or liver injury. Her lactate is low at 1.3, but her lipase is elevated to 304, concerning for pancreatitis. Urinalysis with some ketones and trace blood but no infectious findings. I reviewed the patient's CT from 2 days ago, and note no evidence of pancreatic masses, gallstones, or other actionable findings. The patient does not drink al cohol, and I performed a bedside echo as noted below. I question a small area of shadowing but certainly there is no sonographic Omalley sign, wall thickening, pericholecystic fluid, or other concerning findings for cholecystitis. The patient had significant improvement in her pain and nausea with Zofran and Tylenol, and was able to tolerate oral fluids. I recommended transitioning to a clear liquid diet until such time as her pain has resolved, continuing her Protonix, and I ordered her a formal outpatient ultrasound for evaluation of cholelithiasis, which may represent the etiology of her pancreatitis. I counseled her to reach out to her primary care physician if she does not hear from the emergency department to ensure that somebody follows up on these results and referred her to general surgery if needed. She was unable to pass a stool while in the emergency department, and I provided her with a stool collection kit and outpatient order. At this time, the patient has had a full medical evaluation and is safe for discharge to home. They are hemodynamically stable, ambulatory, and tolerating PO. They are understanding of the follow-up plan and return precautions. They left our facility without incident. Andie Hansen MD [facility] All Active Problems (Updated 11/12/24 @ 23:10 by Andie Hansen MD) Nausea, vomiting and diarrhea (Acute) Pancreatitis (Chronic) Colicky epigastric pain (Acute) Nausea & vomiting (Acute) Dehydration (Acute) Internal derangement of left knee (Acute ~08/24/23) Ovarian cyst (Acute) Chronic migraine without aura, not intractable, without status migrainosus (Acute) Medical History Hydronephrosis Family History Other Autoimmune disease Diabetes Heart disease Hypertension Stroke Social History Smoking/Tobacco Use Status: Never Smoking risk assessment performed?: Yes Alcohol Intake: current Alcohol Intake frequency: a few times a month Drug use: Never Substance use type: does not use Household members: significant other Number of Children: 0 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 @ [employer] Sexually active: Yes Do you think of yourself as: straight/heterosexual Current gender identity: female Other: Pt has step-kids What type of physical activity do you participate in: bicycling Do you feel safe at home: Yes Do you feel safe in your relationship?: Yes Female Reproductive History Menstrual Age of Menarche: 14 control method: pills History History 0 Para Hx # Term Pregnancies Multiple births Hx # Pregnancies Ectopic pregnancies AB induced Hx Number of Living Children AB spontaneous POCUS Exam (ED) Limited Gallbladder Exam DATE OF EXAM: 11/12/24 TIME OF EXAM: 22:13 PROVIDER THAT PERFORMED THE STUDY: Andie Hansen REASON FOR VISIT: Pancreatitis VISUALIZED STRUCTURES: Gallbladder, Gallbladder wall and Liver PERTINENT FINDINGS/IMPRESSION: Gallstones (question small shadowing); No Cholecystitis, No Pericholecystic fluid and No thickening of the gallbladder wall Exam complete
[2024-11-12 21:46] LABS: Abs Immature Grans 0.04 10^3/uL (0.0-0.06); HCT 39.3 % (36.0-46.0); HGB 13.1 g/dL (11.2-15.7); Immature Grans % 0.4 %; MCH 29.6 pg (27.0-33.0); MCHC 33.3 % (32.0-36.0); MCV 89 fL (80-95); MPV 8.3 fL (8.0-11.0); Platelet Count 402 10^3/uL (130-400); RBC 4.43 10^6/uL (3.93-5.22); RDW 11.9 % (11.7-14.6); RDW-SD 38.6 fL; WBC 10.43 10^3/uL (4.4-10.8)
[2024-11-12] MEDS: Ondansetron 4 MG/2 ML VIAL IVP (21:46)
[2024-11-12] MEDS: Lactated Ringers 1,000 ML 1000 ML IV (21:48)
[2024-11-12] MEDS: ACETAMINOPHEN 1,000 MG/100 ML BAG 400 MG IVPB (21:48)
[2024-11-12 22:02] LABS: Glucose Negative (Negative)
[2024-11-12 22:05] LABS: ALT 23 U/L (14-59); AST 15 U/L (15-37); Albumin 3.5 g/dL (3.4-5.0); Alkaline Phosphatase 82 U/L (46-116); Anion Gap 9.8 mmol/L (3-11); BUN 10 mg/dL (7-18); Bilirubin, Total 0.4 mg/dL (0.2-1.0); CO2 25.2 mmol/L (21.0-32.0); Calcium 8.7 mg/dL (8.5-10.1); Chloride 102 mmol/L (98-107); Estimated GFR 77.72 (mL/min/1.73m2); Glucose 152 mg/dL (74-106); Lipase 304 U/L (<78); Magnesium 2.0 mg/dL (1.8-2.4); Potassium 3.7 mmol/L (3.5-5.1); Sodium 137 mmol/L (136-145); Total Protein 7.8 g/dL (6.4-8.2)
[2024-11-12 22:17] LABS: C & S Indicated? No; RBC 0-2 HPF (0-2); WBC 0-2 HPF (0-5)
[2024-11-12 22:55] VITALS: BP 104/71; PULSE 85; RESP 20; TEMP 37.3; O2SAT 98
[2024-11-12 23:22] VITALS: PULSE 86; RESP 18; O2SAT 100
== END 2024-11-12 23:23 | disposition home or self-care (01) ==
PROVIDERS: Emergency Provider Emergency Medicine; PCP Physician Assistant
DX: R11.2 Nausea with vomiting, unspecified; R19.7 Diarrhea, unspecified; K85.90 Acute pancreatitis without necrosis or infection, unspecified
CPT/HCPCS: 76705; 80053; 81025; 83690; 96374; 96375; 99284; 81003; 81015; 83605; 83735; 85025; J0131; J2405

== ENCOUNTER 2024-11-13 16:37 | Outpatient (REF) | payer BC, SELFPAY ==
[2024-11-13 22:54] LABS: Campylobacter PCR Positive (Negative); Shiga Toxin PCR Negative (Negative); Shigella/Enteroinvasive Ecoli Negative (Negative)
== END 2024-11-13 16:38 | disposition home or self-care (01) ==
LOC: LBN 16:37
PROVIDERS: PCP Physician Assistant; Visit Provider Emergency Medicine
DX: K51.00 Ulcerative (chronic) pancolitis without complications (principal)
CPT/HCPCS: 87505

== ENCOUNTER 2024-11-16 13:06 | Outpatient (REF) | payer BC, SELFPAY ==
[2024-11-16 16:15] LABS: ALT 26 U/L (14-59); AST 13 U/L (15-37); Albumin 3.7 g/dL (3.4-5.0); Alkaline Phosphatase 84 U/L (46-116); Anion Gap 12.4 mmol/L (3-11); BUN 12 mg/dL (7-18); Bilirubin, Total 0.5 mg/dL (0.2-1.0); CO2 23.6 mmol/L (21.0-32.0); Calcium 8.8 mg/dL (8.5-10.1); Calculated LDL 110 mg/dL (<100); Chloride 102 mmol/L (98-107); Cholesterol 184 mg/dL (<200); Estimated GFR 101.59 (mL/min/1.73m2); Glucose 91 mg/dL (74-106); HDL Cholesterol 44 mg/dL (>or=50); Potassium 4.1 mmol/L (3.5-5.1); Sodium 138 mmol/L (136-145); Total Protein 7.4 g/dL (6.4-8.2); Triglyceride 151 mg/dL (<150)
[2024-11-16 16:54] LABS: Lipase 110 U/L (<78)
== END 2024-11-16 13:07 | disposition home or self-care (01) ==
LOC: NCHCN 13:06
PROVIDERS: PCP Physician Assistant; Visit Provider Physician Assistant
DX: K85.80 Other acute pancreatitis without necrosis or infection (principal)
CPT/HCPCS: 80053; 80061; 83690